=== PATIENT | female | born 1945 | race Asian ===

== ENCOUNTER 2017-03-06 11:28 | Emergency (ER) | payer OTHER ==
[2017-03-06 12:24] LABS: ADD MAN DIFF? NO
[2017-03-06 12:28] LABS: BASO % 0 % (0-3); EOS % 1 % (0-3); HEMATOCRIT 40.2 % (36.0-47.0); HEMOGLOBIN 13.2 g/dL (12.0-15.5); LYMPH # 1.2 x10^3/uL (1.0-4.8); LYMPH % 21 % (24-48); MEAN CORPUSCULAR HEMOGLOBIN 28 pg (25-35); MEAN CORPUSCULAR HGB CONC 33 g/dL (31-37); MEAN CORPUSCULAR VOLUME 86 fL (79-100); MONO # 0.5 x10^3/uL (0.0-1.1); MONO % 9 % (0-9); NEUT # 4.2 x10^3uL (1.8-7.7); NEUT % 70 % (31-73); PLATELET COUNT 170 x10^3/uL (140-400); RED BLOOD COUNT 4.66 x10^6/uL (3.50-5.40)
[2017-03-06] MEDS: IPRATRPIUM/ALBUTEROL 0.5/2.5MG 3 ML NEBU. NEB (12:35)
[2017-03-06 12:38] LABS: INR 1.1 (0.8-1.1); PROTHROMBIN TIME PATIENT 13.2 SEC (11.7-14.0)
[2017-03-06 12:39] LABS: INFLUENZA A PATIENT NEGATIVE (NEGATIVE); INFLUENZA B PATIENT NEGATIVE (NEGATIVE); OBC FLU VALID
[2017-03-06 12:40] LABS: ANION GAP 7 (6-14); BLOOD UREA NITROGEN 14 mg/dL (7-20); CALCIUM 8.9 mg/dL (8.5-10.1); CARBON DIOXIDE 30 mmol/L (21-32); CHLORIDE 107 mmol/L (98-107); CREATININE 1.1 mg/dL (0.6-1.0); GFR 48.7; GLUCOSE 94 mg/dL (70-99); POTASSIUM 3.7 mmol/L (3.5-5.1); SODIUM 144 mmol/L (136-145)
[2017-03-06 12:45] LABS: D-DIMER 0.27 ug/mlFEU (0.00-0.50)
[2017-03-06 12:46] LABS: ALBUMIN 3.4 g/dL (3.4-5.0); ALK PHOS 56 U/L (46-116); ALT (SGPT) 18 U/L (14-59); AST (SGOT) 23 U/L (15-37); DIRECT BILIRUBIN 0.1 mg/dL (0.0-0.2); LIPASE 152 U/L (73-393); MAGNESIUM 1.9 mg/dL (1.8-2.4); TOTAL BILIRUBIN 0.2 mg/dL (0.2-1.0); TOTAL PROTEIN 7.3 g/dL (6.4-8.2)
[2017-03-06 12:48] LABS: TROPONINI < 0.017 ng/mL (0.000-0.055)
[2017-03-06 12:53] LABS: THYROID STIM HORMONE (TSH) 0.378 uIU/mL (0.358-3.74)
[2017-03-06 12:55] LABS: CKMB INDEX 1.3 % (0-4); CKMB MASS 1.1 ng/mL (0.0-3.6); CREATINE KINASE 87 U/L (26-192)
[2017-03-06 12:55] LABS: NT-PRO BNP 166 pg/mL (0-124)
[2017-03-06 14:08] LABS: BARBITURATES NEG (NEG); BENZODIAZEPINES NEG (NEG); CANNABINOIDS NEG (NEG); COCAINE NEG (NEG); METHADONE NEG (NEG); OPIATES NEG (NEG); PHENCYCLIDINE NEG (NEG)
[2017-03-06 14:14] LABS: AMPHETAMINE/METHAMPHETAMINE NEG (NEG); ETHANOL, URINE NEG (NEG)
[2017-03-06] MEDS: AZITHROMYCIN 250 MG TABLET. PO (15:05)
== END 2017-03-06 15:29 | disposition home or self-care (01) ==
LOC: ER 11:28
DX: J40 Bronchitis, not specified as acute or chronic (principal)
CPT/HCPCS: 36415; 71045; 80048; 80076; 80307; 82553; 83690; 83735; 83880; 84443; 84484; 85025; 85379; 85610; 87804; 87804-59; 93005; 94640; 99285-25; J7620; Q0144

== ENCOUNTER 2017-03-18 12:15 | Emergency (ER) | payer OTHER ==
[2017-03-18 13:16] LABS: ADD MAN DIFF? NO
[2017-03-18 13:17] LABS: INFLUENZA A PATIENT NEGATIVE (NEGATIVE); INFLUENZA B PATIENT NEGATIVE (NEGATIVE); OBC FLU VALID
[2017-03-18 13:18] LABS: BASO % 0 % (0-3); EOS % 0 % (0-3); HEMATOCRIT 39.7 % (36.0-47.0); HEMOGLOBIN 13.5 g/dL (12.0-15.5); LYMPH # 1.4 x10^3/uL (1.0-4.8); LYMPH % 21 % (24-48); MEAN CORPUSCULAR HEMOGLOBIN 29 pg (25-35); MEAN CORPUSCULAR HGB CONC 34 g/dL (31-37); MEAN CORPUSCULAR VOLUME 85 fL (79-100); MONO # 0.4 x10^3/uL (0.0-1.1); MONO % 7 % (0-9); NEUT # 4.8 x10^3uL (1.8-7.7); NEUT % 72 % (31-73); PLATELET COUNT 158 x10^3/uL (140-400); RED BLOOD COUNT 4.65 x10^6/uL (3.50-5.40); WHITE BLOOD COUNT 6.6 x10^3/uL (4.0-11.0)
[2017-03-18 13:30] LABS: ANION GAP 6 (6-14); BLOOD UREA NITROGEN 14 mg/dL (7-20); BUN/CREATININE RATIO 20 (6-20); CALCIUM 8.9 mg/dL (8.5-10.1); CARBON DIOXIDE 29 mmol/L (21-32); CHLORIDE 96 mmol/L (98-107); CREATININE 0.7 mg/dL (0.6-1.0); GLUCOSE 91 mg/dL (70-99); POTASSIUM 4.1 mmol/L (3.5-5.1); SODIUM 131 mmol/L (136-145)
[2017-03-18 13:35] LABS: ALBUMIN 3.9 g/dL (3.4-5.0); ALK PHOS 60 U/L (46-116); ALT (SGPT) 27 U/L (14-59); AST (SGOT) 26 U/L (15-37); TOTAL BILIRUBIN 0.4 mg/dL (0.2-1.0); TOTAL PROTEIN 7.7 g/dL (6.4-8.2)
[2017-03-18] MEDS: predniSONE 20 MG TABLET PO ×2 (14:22)
[2017-03-18] MEDS: IPRATRPIUM/ALBUTEROL 0.5/2.5MG 3 ML NEBU. NEB ×2 (14:29)
== END 2017-03-18 15:55 | disposition home or self-care (01) ==
LOC: ER 12:15
DX: J44.1 Chronic obstructive pulmonary disease with (acute) exacerbation (principal)
CPT/HCPCS: 36415; 71045; 80053; 84484; 85025; 87804; 87804-59; 93005; 94640; 94760; 99285-25; J7512; J7620